=== PATIENT | female | born 1970 | race Caucasian/White ===

== ENCOUNTER 2021-05-25 14:20 | Emergency (ER) | payer MEDICAID, OTHER ==
[~2021-05-25] VITALS: Ht 172.7 cm; Wt 77.2 kg
--- NOTE | 2021-05-25 14:59 | ED GI ---
General Chief Complaint: Abdominal/GI Problems Stated Complaint: ABDOMINAL PAINS Nursing Triage Note: AMB TO ED WITH C/O CONSTIPATION FOR 3 WEEKS. WAS SEEN AT [facility] WALK IN 2 WEEKS AND TOLD TO USE OTC LAXTIVE. IS SUPPOSE TO SEE DR SLADE ON MAY 31 TO HAVE A COLONSCOPY CON'T TO HAVE PROBLEMS. REPORTS HER STOOL IS PENCIL SIZE. ABD DISTENDED Source of Information: Patient Exam Limitations: No Limitations History of Present Illness Date Seen by Provider: May 25, 2021 Time Seen by Provider: 14:54 Initial Comments Patient is a 50-year-old female presents ED with generalized abdominal pain. Pain over the past 2 to 3 weeks. She states she woke up this morning felt bloated with worsening pain. She states she woke up this morning with a distended abdomen. History of appendectomy, cholecystectomy, tubal ligation. Patient states she was seen few weeks ago at a walk-in clinic had a abdominal x- ray that was concerning for potential lesion. She has been taking MiraLAX for constipation. She reports bowel movements every 4 to 5 days thin and pencil shaped. She states that her father of stomach cancer at a early age and concern for cancer. She is scheduled to have a colonoscopy on May 31. Patient reports similar pain in the past. She reports weight gain with nausea. Denies vomiting, blood in her stool, chest pain, shortness of breath, alcohol use, NSAID use, urinary symptoms. Allergies and Home Medications Allergies Coded Allergies: No Allergy Information Available (Unverified , 05/25/21) Patient Home Medication List Home Medication List Reviewed: Yes Na Phos,M-B/Na Phos,Di-Ba (Fleet Enema) 133 Ml Enema, 133 ML RC DAILY PRN Prescribed by: CAROLINE SIM on 05/25/21 6178 Review of Systems Review of Systems Constitutional: No chills, No diaphoresis, No dizziness EENTM: No See HPI Respiratory: Denies Cough, Denies Orthopnea Cardiovascular: Denies Chest Pain, Denies Edema Gastrointestinal: Abdomen Distended, Abdominal Pain Genitourinary: Denies Burning, Denies Discharge Musculoskeletal: No back pain, No joint pain Skin: No change in color, No change in hair/nails Physical Exam Vital Signs Vital Signs - First Documented 05/25/21 14:33 Temp 36.6 Pulse 80 Resp 18 B/P (MAP) 141/67 (91) Pulse Ox 100 O2 Delivery Room Air Capillary Refill : Less Than 3 Seconds Height/Weight/BMI Height: '" Weight: lbs. oz. kg; 25.00 BMI Method: General Appearance: WD/WN, no apparent distress HEENT: PERRL/EOMI, normal ENT inspection, TMs normal Neck: non-tender, full range of motion, supple Respiratory: chest non-tender, lungs clear, normal breath sounds Cardiovascular: regular rate, rhythm, no edema, no gallop Gastrointestinal: normal bowel sounds, soft, distended, tenderness (Generalized tenderness worse left lower quadrant) Extremities: normal range of motion, non-tender, normal inspection Back: normal inspection, no CVA tenderness Neurologic/Psychiatric: odd piece checker II-XII nml as tested, no motor/sensory deficits Progress/Results/Core Measures Results/Orders Lab Results Laboratory Tests Test 05/25/21 15:04 05/25/21 15:39 Range/Units White Blood Count 8.6 4.3-11.0 10^3/uL Red Blood Count 4.56 3.80-5.11 10^6/uL Hemoglobin 14.2 11.5-16.0 g/dL Hematocrit 43 35-52 % Mean Corpuscular Volume 93 80-99 fL Mean Corpuscular Hemoglobin 31 25-34 pg Mean Corpuscular Hemoglobin Concent 33 32-36 g/dL Red Cell Distribution Width 12.7 10.0-14.5 % Platelet Count 323 130-400 10^3/uL Mean Platelet Volume 9.2 9.0-12.2 fL Immature Granulocyte % (Auto) 0 % Neutrophils (%) (Auto) 57 42-75 % Lymphocytes (%) (Auto) 34 12-44 % Monocytes (%) (Auto) 6 0-12 % Eosinophils (%) (Auto) 2 0-10 % Basophils (%) (Auto) 1 0-10 % Neutrophils # (Auto) 4.9 1.8-7.8 10^3/uL Lymphocytes # (Auto) 2.9 1.0-4.0 10^3/uL Monocytes # (Auto) 0.5 0.0-1.0 10^3/uL Eosinophils # (Auto) 0.2 0.0-0.3 10^3/uL Basophils # (Auto) 0.1 0.0-0.1 10^3/uL Immature Granulocyte # (Auto) 0.0 0.0-0.1 10^3/uL Sodium Level 139 135-145 MMOL/L Potassium Level 4.3 3.6-5.0 MMOL/L Chloride Level 106 98-107 MMOL/L Carbon Dioxide Level 22 21-32 MMOL/L Anion Gap 11 5-14 MMOL/L Blood Urea Nitrogen 11 7-18 MG/DL Creatinine 0.75 0.60-1.30 MG/DL Estimat Glomerular Filtration Rate 82 BUN/Creatinine Ratio 15 Glucose Level 113 H 70-105 MG/DL Calcium Level 8.6 8.5-10.1 MG/DL Corrected Calcium 8.4 L 8.5-10.1 MG/DL Total Bilirubin 0.5 0.1-1.0 MG/DL Aspartate Amino Transf (AST/SGOT) 15 5-34 U/L Alanine Aminotransferase (ALT/SGPT) 12 0-55 U/L Alkaline Phosphatase 86 40-136 U/L Total Protein 7.0 6.4-8.2 GM/DL Albumin 4.2 3.2-4.5 GM/DL Lipase 64 8-78 U/L Urine Color YELLOW Urine Clarity CLEAR Urine pH 6.0 5-9 Urine Specific [place] <=1.005 1.016-1.022 Urine Protein NEGATIVE NEGATIVE Urine Glucose (UA) NEGATIVE NEGATIVE Urine Ketones NEGATIVE NEGATIVE Urine Nitrite NEGATIVE NEGATIVE Urine Bilirubin NEGATIVE NEGATIVE Urine Urobilinogen 0.2 < = 1.0 MG/DL Urine Leukocyte Esterase NEGATIVE NEGATIVE Urine RBC (Auto) NEGATIVE NEGATIVE Urine RBC NONE /HPF Urine WBC RARE /HPF Urine Squamous Epithelial Cells 2-5 /HPF Urine Crystals NONE /LPF Urine Bacteria FEW H /HPF Urine Casts NONE /LPF Urine Mucus NEGATIVE /LPF Urine Culture Indicated NO My Orders Orders - TAMI SNEED Ua Culture If Indicated (05/25/21 14:38) Cbc With Automated Diff (05/25/21 14:52) Comprehensive Metabolic Panel (05/25/21 14:52) Lipase (05/25/21 14:52) Ct Abdomen/Pelvis W (05/25/21 14:52) Iohexol Injection (Omnipaque 350 Mg/Ml 1 (05/25/21 15:00) Received Contrast (Hold Metformin- Contr (05/25/21 15:00) Ns (Ivpb) (Sodium Chloride 0.9% Ivpb Bag (05/25/21 15:00) Medications Given in ED Current Medications Medications Dose Ordered Sig/Princess Route Start Time Stop Time Status Last Admin Dose Admin Iohexol 100 ml ONCE ONCE IV 05/25/21 15:00 05/25/21 15:01 DC 05/25/21 15:25 100 ML Sodium Chloride 100 ml ONCE ONCE IV 05/25/21 15:00 05/25/21 15:01 DC 05/25/21 15:25 80 ML Vital Signs/I&O 05/25/21 05/25/21 14:33 16:18 Temp 36.6 Pulse 80 76 Resp 18 18 B/P (MAP) 141/67 (91) 140/60 Pulse Ox 100 98 O2 Delivery Room Air Room Air Blood Pressure Mean: 91 Departure Communication (Admissions) Patient with continuous abdominal pain. Decreased bowel movements every 4 to 5 days but is able to produce stool. Denies of any blood in stool, vomiting. CT abdomen pelvis shows constipation. No peritoneal signs or evidence of a acute abdomen. No evidence of obstruction. No mass. Lab work was otherwise unremarkable. Urinalysis unremarkable. She is scheduled for colonoscopy on May 31. Outpatient follow-up. Discussed magnesium citrate bottle within a 24-hour period. If no improvement recommend Fleet enema. Continue with MiraLAX. Discussed high-fiber diet and drink plenty of fluids. Return precautions were discussed. History of constipation in the past. Patient appears well nontoxic. No chest pain or shortness of breath. Impression Primary Impression: Constipation Disposition: HOME, SELF-CARE Condition: Improved Departure-Patient Inst. Decision time for Depature: 16:09 Referrals: FRANCA CORREIA MD (PCP/Family) Primary Care Physician Patient Instructions: Constipation, Adult (DC) Add. Discharge Instructions: Recommend Metamucil. Follow-up with GI. Recommend MiraLAX, magnesium citrate and If no improvement recommend Fleet enema All discharge instructions reviewed with patient and/or family. Voiced understanding. Scripts Na Phos,M-B/Na Phos,Di-Ba (Fleet Enema) 133 Ml Enema 133 ML RC DAILY PRN for 1 Day, #1 EA Prov: TAMI SNEED 05/25/21 TAMI SNEED May 25, 2021 14:59
[2021-05-25] MEDS ORDERED: HOLD METFORMIN - RECEIVED CONTRAST 20 ML VIAL IV SCH (15:00)
[2021-05-25] MEDS ORDERED: IOHEXOL 350 MG/ML 100 ML (OMNIPAQUE 350) VIAL IV ONE (15:00)
[2021-05-25] MEDS ORDERED: NS 100 ML (IVPB) BAG IV ONE (15:00)
[2021-05-25 15:10] LABS: BASOPHILS # (AUTO) 0.1 10^3/uL (0.0-0.1); BASOPHILS % (AUTO) 1 % (0-10); EOSINOPHILS # (AUTO) 0.2 10^3/uL (0.0-0.3); EOSINOPHILS % (AUTO) 2 % (0-10); HEMATOCRIT 43 % (35-52); HEMOGLOBIN 14.2 g/dL (11.5-16.0); LYMPHOCYTES # (AUTO) 2.9 10^3/uL (1.0-4.0); LYMPHOCYTES % (AUTO) 34 % (12-44); MEAN CORPUSCULAR HEMOGLOBIN 31 pg (25-34); MEAN CORPUSCULAR HGB CONC 33 g/dL (32-36); MEAN CORPUSCULAR VOLUME 93 fL (80-99); MEAN PLATELET VOLUME 9.2 fL (9.0-12.2); MONOCYTES # (AUTO) 0.5 10^3/uL (0.0-1.0); MONOCYTES % (AUTO) 6 % (0-12); NEUTROPHILS # (AUTO) 4.9 10^3/uL (1.8-7.8); NEUTROPHILS % (AUTO) 57 % (42-75); PLATELET COUNT 323 10^3/uL (130-400); WHITE BLOOD COUNT 8.6 10^3/uL (4.3-11.0)
[2021-05-25 15:30] LABS: ALBUMIN 4.2 GM/DL (3.2-4.5); BILIRUBIN,TOTAL 0.5 MG/DL (0.1-1.0); CALCIUM 8.6 MG/DL (8.5-10.1); CREATININE SERUM 0.75 MG/DL (0.60-1.30); POTASSIUM 4.3 MMOL/L (3.6-5.0)
[2021-05-25 15:44] LABS: BILIRUBIN,URINE NEGATIVE (NEGATIVE); CLARITY,URINE CLEAR; COLOR,URINE YELLOW; GLUCOSE, URINE (UA) NEGATIVE (NEGATIVE); KETONES,URINE NEGATIVE (NEGATIVE); LEUKOCYTE ESTERASE ,URINE NEGATIVE (NEGATIVE); NITRITE,URINE NEGATIVE (NEGATIVE); PROTEIN,URINE NEGATIVE (NEGATIVE)
--- NOTE | 2021-05-25 15:48 | Diagnostic Imaging Report ---
PROCEDURE: CT abdomen and pelvis with contrast. TECHNIQUE: Multiple contiguous axial images were obtained through the abdomen and pelvis after administration of intravenous contrast. Auto Exposure Controls were utilized during the CT exam to meet ALARA standards for radiation dose reduction. All CT scans use one or more of the following dose optimizing techniques: automated exposure control, MA and/or KvP adjustment based on patient size and exam type or iterative reconstruction. INDICATION: Abdominal pain. COMPARISON: None available. FINDINGS: The visualized lung bases are clear. Cholecystectomy. The liver and spleen are unremarkable. The adrenal glands are unremarkable. The pancreas is unremarkable. The kidneys are unremarkable. Moderate vascular calcifications within the abdominal aorta and its branch vessels without aneurysmal dilatation of the abdominal aorta. The urinary bladder is decompressed, therefore not well evaluated. The uterus is not visualized, likely surgically absent. Adnexal structures are unremarkable for age. Moderate amount of stool throughout the colon without evidence of bowel obstruction. No CT evidence of acute appendicitis. No significant adenopathy, free air, or free fluid within the abdomen or pelvis. Scattered osseous degenerative changes without acute osseous abnormality. There does appear to be significant central canal stenosis at the L4/L5 level and to a lesser degree at the L3/L4 level. IMPRESSION: Significant amount of stool throughout the colon, which may relate to constipation. No evidence of bowel obstruction. Degenerative changes within the osseous structures, with resulting multilevel central canal stenosis within the lower lumbar spine. Additional findings as above. Dictated by: Dictated on workstation # [id number]
[2021-05-25 16:04] LABS: BACTERIA,URINE FEW /HPF; WBC,URINE RARE /HPF
[2021-05-25] MEDS ORDERED: NA P133E22 RC (16:13)
[2021-05-25 16:18] VITALS: BP 140/60
[2021-05-30] MEDS ORDERED: OMEP20TA7 PO (13:28)
[2021-05-30] MEDS ORDERED: DULA1.5P2 SQ (13:28)
[2021-05-30] MEDS ORDERED: GABA300S2 PO (13:28)
[2021-05-30] MEDS ORDERED: METF-397 PO (13:28)
[2021-05-30] MEDS ORDERED: INSU100V6 SQ (13:28)
== END 2021-05-25 16:18 | disposition home or self-care (01) ==
LOC: ER 14:26
DX: K59.00 Constipation, unspecified (principal)
CPT/HCPCS: 36415; 74177; 80053; 81000; 83690; 85025

== ENCOUNTER 2021-06-02 05:33 | Outpatient (RCR) | payer MEDICAID ==
[~2021-06-02] VITALS: Ht 172.7 cm; Wt 77.1 kg
[~2021-06-02 05:33] MED LIST: DULA1.5P2 SQ; GABA300S2 PO; INSU100V6 SQ; METF-397 PO; NA P133E22 RC; OMEP20TA7 PO
== END 2021-06-02 09:17 | disposition home or self-care (01) ==
LOC: PREOP 05:33
PROVIDERS: ATTEND Surgery
DX: Z01.812 Encounter for preprocedural laboratory examination (principal); R19.4 Change in bowel habit; R10.10 Upper abdominal pain, unspecified; Z20.822 Contact with and (suspected) exposure to COVID-19
CPT/HCPCS: 87635

== ENCOUNTER 2021-06-06 10:03 | Day surgery (SDC) | payer MEDICAID ==
[2021-06-06] VITALS (8 sets, daily range): BP systolic 86–124; BP diastolic 50–77
[~2021-06-06] VITALS: Ht 172.7 cm; Wt 77.1 kg
[~2021-06-06 10:03] MED LIST changes: +LACTATED RINGERS 1,000 ML IV STA
[2021-06-06] MEDS ORDERED: LACTATED RINGERS 1,000 ML IV ONE (10:08)
[2021-06-06] MEDS ORDERED: HURRICAINE EXT TUBE (BENZOCAINE) XX PRN (10:15)
[2021-06-06] MEDS ORDERED: PROPOFOL INJECTION 50 ML IV ONE ×2 (10:19→10:44)
--- NOTE | 2021-06-06 10:27 | Progress Note-Pre Operative ---
Pre-Operative Progress Note H&P Reviewed The H&P was reviewed, patient examined and no changes noted. Time Seen by Provider: 10:25 Date H&P Reviewed: Jun 06, 2021 Time H&P Reviewed: 10:25 Pre-Operative Diagnosis: change in bowel habits, upper abd pain TIGRE SLADE DO Jun 06, 2021 10:27
--- NOTE | 2021-06-06 11:06 | Progress Note-Post Operative ---
Post-Operative Progess Note Surgeon (s)/Cleaning Associate (s) Surgeon TIGRE SLADE DO Cleaning Associate: MACKENZIE ArteagaII Pre-Operative Diagnosis change in bowel habits, upper abd pain Post-Operative Diagnosis Gastritis Esophagitis Hiatal hernia Poor prep int hemorrhoids Procedure & Operative Findings Date of Procedure 06/06/21 Procedure Performed/Findings EGD with bx Colonoscopy PROCEDURE NOTE: After informed consent was obtained, the patient was brought to the endoscopy suite, placed in bed in left lateral decubitus position. She was administered IV sedation by the [employer]PL[employer]ING [employer] who then monitored vitals the entire time, heart rate, blood pressure and pulse ox and the scope was inserted down the mouth through the esophagus into the stomach. On the way down, noted some mild esophagitis, took a picture, pushed into the stomach, pushed past the antrum into the duodenum. Duodenum looked good. Pulled back and did a biopsy of antrum, then retroflexed the scope, saw small hiatal hernia, took a picture of this. Next I did a biopsy of the body of the stomach for what looked like gastritis. Next, pulled the scope into the GE junction and took a picture and then did a biopsy of the GE junction. Pushed the scope back into the stomach, suctioned all the air out of the stomach. At this point pulled the scope up the esophagus and out the mouth. Switched camera, switched gloves, went down below, started the colonoscopy. Pushed all the way into about 140 cm to get all the way to cecum, took a picture of the appendiceal orifice, noted the ileocecal valve. Unforturnately, pt had a lot of retained fecal material and it was oily; which obscured the picture. Tried to slowly withdrew the scope, insufflating to look circumferentially at the silverio looking in the cecum, up the ascending colon to the hepatic flexure, then down the transverse colon, splenic flexure, into the descending colon, down into the sigmoid and finally into the rectum. I could not retroflex in the rectal vault because of the fecal material. I did see some minimal internal hemorrhoids as I pulled the scope out and took a picture of this. The patient tolerated the procedure and she recovered in the endoscopy suite. Anesthesia Type IV sedation by [employer] Estimated Blood Loss Estimated blood loss (mL): scant Specimens/Packing Specimens Removed antral bx body of stomach bx GE jxn bx TIGRE SLADE DO Jun 06, 2021 11:06
--- NOTE | 2021-06-06 11:07 | Endoscopy Discharge Instruct ---
Endo Procedure/Findings Findings 1.: Gastritis 2.: Hiatal Hernia 3.: Internal Hemorrhoids 4.: Other Findings (poor prep) Discharge Instructions - Activity: You might feel a little sleepy until tomorrow. This is due to the m edicine you received to relax you. Until tomorrow, you should: NOT drive a car, operate machinery or power tools. NOT drink any alcoholic beverages. NOT make any important decisions or sign importortant papers. Do not return to work until tomorrow, unless otherwise instructed. Resume previous activities tomorrow. Diet: Start by taking liquids. If you tolerate liquids, advance to solid food. 1.: EGD in 1 year 2.: Other Recommendation (colon in 6-8 weeks or sooner) Notify Physician - If you experience excessive bleeding, unusual abdominal pain, fever, or chest pain, contact your doctor immediately. TIGRE SLADE DO Jun 06, 2021 11:07
--- NOTE | 2021-06-06 11:57 | Anesthesia-General Post-Op ---
MAC Patient Condition Mental Status/LOC: Same as Preop Cardiovascular: Satisfactory Nausea/Vomiting: Absent Respiratory: Satisfactory Pain: Controlled Complications: Absent Post Op Complications Complications None Follow Up Care/Instructions Patient Instructions None needed. Anesthesiology Discharge Order Discharge Order Patient was seen after the procedure and she was doing well, no complaints, stable vital signs, no apparent adverse anesthesia problems. THEO PINZON DO Jun 06, 2021 11:57
== END 2021-06-06 11:49 | disposition home or self-care (01) ==
LOC: ENDO 10:03
PROVIDERS: ATTEND Surgery
DX: K29.70 Gastritis, unspecified, without bleeding (principal); K20.90 Esophagitis, unspecified without bleeding; K44.9 Diaphragmatic hernia without obstruction or gangrene; K64.8 Other hemorrhoids; F17.210 Nicotine dependence, cigarettes, uncomplicated; E11.9 Type 2 diabetes mellitus without complications; Z88.2 Allergy status to sulfonamides; Z88.0 Allergy status to penicillin; Z79.899 Other long term (current) drug therapy; Z79.84 Long term (current) use of oral hypoglycemic drugs; Z79.4 Long term (current) use of insulin
CPT/HCPCS: 82947